=== PATIENT | female | born 1955 | race Caucasian/White ===

== ENCOUNTER 2021-01-16 08:00 | Emergency (ER) | payer OTHER ==
[~2021-01-16] VITALS: Ht 162.6 cm; Wt 65.8 kg
[2021-01-16] MEDS ORDERED: ONDA4ODT MM (08:57)
== END 2021-01-16 09:14 | disposition home or self-care (01) ==
LOC: ER 08:00
DX: J06.9 Acute upper respiratory infection, unspecified (principal); I10 Essential (primary) hypertension; Z20.822 Contact with and (suspected) exposure to COVID-19
CPT/HCPCS: 99283; A9270

== ENCOUNTER → 2021-07-02 | Outpatient (CLI) | payer OTHER ==
[~2021-07-02] MED LIST: ONDA4ODT MM
[2021-07-02 18:01] LABS: BASOPHILS ABSOLUTE AUTO 0.03 K/mm3 (0.00-0.23); BASOPHILS PERCENT AUTO 0 % (0-2); EOSINOPHILS ABSOLUTE AUTO 0.17 K/mm3 (0.00-0.68); EOSINOPHILS PERCENT AUTO 2 % (0-6); Hematocrit 37.9 % (33.0-51.0); Hemoglobin 12.4 g/dL (11.5-16.0); IMMATURE GRAN ABSOLUTE AUTO 0.01 K/mm3 (0.00-0.10); IMMATURE GRAN PERCENT AUTO 0 % (0-1); LYMPHOCYTES ABSOLUTE AUTO 2.47 K/mm3 (0.84-5.20); LYMPHOCYTES PERCENT AUTO 31 % (21-46); MONOCYTES ABSOLUTE AUTO 0.55 K/mm3 (0.16-1.47); MONOCYTES PERCENT AUTO 7 % (4-13); Mean Corpuscular HGB 29.9 pg (26.0-34.0); Mean Corpuscular HGB Conc 32.7 g/dL (31.5-36.5); Mean Corpuscular Volume 91 fL (80-100); Mean Platelet Volume 9.9 fL (9.1-12.4); NEUTROPHILS ABSOLUTE AUTO 4.74 K/mm3 (1.96-9.15); NEUTROPHILS PERCENT AUTO 60 % (41-73); Platelet Count 215 K/mm3 (150-400); RDW Coefficient Variation 12.9 % (11.7-14.2); RDW Standard Deviation 42.6 fL (35.1-46.3); Red Blood Cell Count 4.15 M/mm3 (3.80-5.20); White Blood Cell Count 7.97 K/mm3 (4.00-11.30)
[2021-07-02 18:26] LABS: Alanine Aminotransfer (ALT/SGP 44 U/L (12-78); Albumin/Globulin Ratio 1.3 (0.8-1.8); Alk Phos 78 U/L (40-126); Anion Gap 10 mmol/L (6-16); Aspartate Aminotrans (AST/SGOT 21 U/L (12-37); Bilirubin, Total 0.4 mg/dL (0.1-1.0); Blood Urea Nitrogen 19 mg/dL (8-24); Bun/Creatinine Ratio 24.1 (12.0-20.0); CO2, Blood 29 mmol/L (21-32); Calcium, Blood 9.4 mg/dL (8.5-10.1); Chloride, Blood 105 mmol/L (98-108); Creatinine, Blood 0.79 mg/dL (0.40-1.00); Globulin, Blood 3.2 g/dL (2.2-4.0); Glomerular Filtration Rate >60 (60-); Glucose, Blood 109 mg/dL (70-99); Magnesium, Blood 2.1 mg/dL (1.6-2.4); Potassium, Blood 3.8 mmol/L (3.5-5.5); Sodium, Blood 144 mmol/L (136-145); Thyroid Stimulating Hormone 1.805 uIU/mL (0.360-4.800); Total Protein, Blood 7.2 g/dL (6.4-8.2)
== END | disposition home or self-care (01) ==
LOC: LAB SHORT 17:58
PROVIDERS: Physician Assistant
DX: R53.81 Other malaise (principal); R53.83 Other fatigue
CPT/HCPCS: 80053; 83735; 84443; 85025

== ENCOUNTER 2021-08-02 10:05 | Emergency (ER) | payer OTHER ==
[~2021-08-02] VITALS: Ht 162.6 cm; Wt 63.5 kg
== END 2021-08-02 10:59 | disposition home or self-care (01) ==
LOC: ER 10:05
DX: D32.9 Benign neoplasm of meninges, unspecified (principal); I10 Essential (primary) hypertension
CPT/HCPCS: 99282

== ENCOUNTER 2021-11-05 11:40 | Emergency (ER) | payer OTHER ==
[~2021-11-05] VITALS: Ht 162.6 cm; Wt 54.4 kg
[2021-11-05] MEDS ORDERED: ASPI81CH PO (11:56)
[2021-11-05] MEDS ORDERED: AMLO5 PO (11:56)
[2021-11-05] MEDS ORDERED: BISA5EC PO (11:57)
[2021-11-05] MEDS ORDERED: BUSP5 PO (11:58)
[2021-11-05] MEDS ORDERED: HYDCHL25 PO (11:58)
[2021-11-05] MEDS ORDERED: ROSU10TA PO (11:59)
[2021-11-05] MEDS ORDERED: Benicar40 MG PO (11:59)
[2021-11-05] MEDS ORDERED: VIT1CAPS12 (11:59)
[2021-11-05] MEDS ORDERED: SERT100 PO (12:00)
[2021-11-05] MEDS ORDERED: THERA-D2000 UNIT PO (12:00)
[2021-11-05] MEDS ORDERED: Triamcinolone A15 G3 TOP (12:00)
[2021-11-05 13:17] LABS: BASOPHILS ABSOLUTE AUTO 0.03 K/mm3 (0.00-0.23); BASOPHILS PERCENT AUTO 0 % (0-2); EOSINOPHILS PERCENT AUTO 2 % (0-6); Hematocrit 38.9 % (33.0-51.0); Hemoglobin 13.3 g/dL (11.5-16.0); IMMATURE GRAN ABSOLUTE AUTO 0.02 K/mm3 (0.00-0.10); IMMATURE GRAN PERCENT AUTO 0 % (0-1); LYMPHOCYTES PERCENT AUTO 27 % (21-46); MONOCYTES ABSOLUTE AUTO 0.45 K/mm3 (0.16-1.47); MONOCYTES PERCENT AUTO 7 % (4-13); Mean Corpuscular HGB 30.1 pg (26.0-34.0); Mean Corpuscular HGB Conc 34.2 g/dL (31.5-36.5); Mean Corpuscular Volume 88 fL (80-100); Mean Platelet Volume 9.9 fL (9.1-12.4); NEUTROPHILS ABSOLUTE AUTO 4.31 K/mm3 (1.96-9.15); NEUTROPHILS PERCENT AUTO 64 % (41-73); Platelet Count 213 K/mm3 (150-400); RDW Coefficient Variation 12.8 % (11.7-14.2); RDW Standard Deviation 41.5 fL (35.1-46.3); Red Blood Cell Count 4.42 M/mm3 (3.80-5.20); White Blood Cell Count 6.71 K/mm3 (4.00-11.30)
[2021-11-05 13:22] LABS: Bun/Creatinine Ratio 26.2 (12.0-20.0); Calcium, Blood 9.4 mg/dL (8.5-10.1); Creatinine, Blood 0.65 mg/dL (0.40-1.00); Potassium, Blood 3.7 mmol/L (3.5-5.5)
== END 2021-11-05 18:55 | disposition home or self-care (01) ==
LOC: ER 11:40
PROVIDERS: Student in an Organized Health Care Education/Training Program
DX: D32.0 Benign neoplasm of cerebral meninges (principal); G89.29 Other chronic pain; I10 Essential (primary) hypertension; F32.A Depression, unspecified; Z79.899 Other long term (current) drug therapy; Z79.82 Long term (current) use of aspirin
CPT/HCPCS: 70450; 70551; 80048; 85025; J1100; J1200; J1790; J1885; J2765; J3475